=== PATIENT | female | born 1985 | race Caucasian/White ===

== ENCOUNTER 2020-10-10 22:10 | Emergency (ER) | payer OTHER ==
[2020-10-10 23:43] LABS: HEMOGLOBIN 11.8 gm/dl (12.3-15.3); RED BLOOD COUNT 3.91 M/UL (4.00-5.10); WHITE BLOOD COUNT 8.4 K/UL (4.5-11.0)
[2020-10-10 23:55] LABS: BUN/CREATININE RATIO 16 (0-10)
[2020-10-11] MEDS ORDERED: AMOXICILLIN250 MG PO (00:49)
== END 2020-10-11 01:27 | disposition home or self-care (01) ==
LOC: ER1 22:10
PROVIDERS: Family Medicine
DX: O26.51 Maternal hypotension syndrome, first trimester (principal); Z3A.01 Less than 8 weeks gestation of pregnancy; Z88.2 Allergy status to sulfonamides; Z91.040 Latex allergy status
CPT/HCPCS: 80053; 81001; 82550; 82553; 83874; 84439; 84443; 84484; 85025; 93005; 99285

== ENCOUNTER 2020-11-09 11:30 | Emergency (ER) | payer OTHER ==
[~2020-11-09 11:30] MED LIST: AMOXICILLIN250 MG PO
[2020-11-09 12:15] LABS: HEMOGLOBIN 12.7 gm/dl (12.3-15.3); RED BLOOD COUNT 4.09 M/UL (4.00-5.10); WHITE BLOOD COUNT 10.6 K/UL (4.5-11.0)
[2020-11-09 12:37] LABS: BUN/CREATININE RATIO 12 (0-10)
[2020-11-09] MEDS ORDERED: HYDROCODON-ACE1 EAC4 PO (15:08)
[2020-11-09] MEDS ORDERED: CEPHALEXIN500 MG PO (15:12)
[2020-11-09] MEDS ORDERED: FLOMAX 0.4 MG0.4 MG PO (15:12)
[2020-11-09] MEDS ORDERED: ZOFRAN4 MG PO (15:12)
== END 2020-11-09 15:53 | disposition home or self-care (01) ==
LOC: ER1 11:30
PROVIDERS: Physician Assistant
DX: O26.831 Pregnancy related renal disease, first trimester (principal); N13.2 Hydronephrosis with renal and ureteral calculous obstruction; Z3A.09 9 weeks gestation of pregnancy; Z88.2 Allergy status to sulfonamides; Z88.5 Allergy status to narcotic agent; Z88.8 Allergy status to other drugs, medicaments and biological substances
CPT/HCPCS: 76775; 80053; 81001; 84702; 85025; 87086; 96365; 96375; 99284; J0696; J2550

== ENCOUNTER 2021-01-23 18:53 | Outpatient (CLI) | payer OTHER ==
[~2021-01-23 18:53] MED LIST changes: +CEPHALEXIN500 MG PO; +FLOMAX 0.4 MG0.4 MG PO; +HYDROCODON-ACE1 EAC4 PO; +ZOFRAN4 MG PO
[2021-01-23 20:49] LABS: BUN/CREATININE RATIO 9 (0-10)
== END 2021-01-23 22:41 | disposition home or self-care (01) ==
LOC: GENOP 18:53
PROVIDERS: Obstetrics & Gynecology
DX: O21.9 Vomiting of pregnancy, unspecified (principal); O62.9 Abnormality of forces of labor, unspecified; O26.892 Other specified pregnancy related conditions, second trimester; R42 Dizziness and giddiness; E16.2 Hypoglycemia, unspecified; R03.1 Nonspecific low blood-pressure reading; Z3A.20 20 weeks gestation of pregnancy; Z91.040 Latex allergy status; Z88.1 Allergy status to other antibiotic agents; Z88.6 Allergy status to analgesic agent
CPT/HCPCS: 36415; 59025; 80053; 81001; 96360; 96361; 96374; 96375; 96376; J0696; J2550

== ENCOUNTER 2021-02-26 23:19 | Outpatient (CLI) | payer OTHER | END 2021-02-27 06:55 | disposition home or self-care (01) | LOC: GENOP 23:19 | DX: O99.891 Other specified diseases and conditions complicating pregnancy (principal); R10.9 Unspecified abdominal pain; M54.9 Dorsalgia, unspecified; O99.352 Diseases of the nervous system complicating pregnancy, second trimester; G43.909 Migraine, unspecified, not intractable, without status migrainosus; Z88.2 Allergy status to sulfonamides; Z88.5 Allergy status to narcotic agent; Z91.040 Latex allergy status; Z3A.26 26 weeks gestation of pregnancy | CPT/HCPCS: 81001; 96360; 96361; 96367; J0696 ==

== ENCOUNTER 2021-04-10 21:30 | Outpatient (CLI) | payer OTHER | END 2021-04-10 22:58 | disposition home or self-care (01) | LOC: GENOP 21:30 | DX: O47.03 False labor before 37 completed weeks of gestation, third trimester (principal); Z3A.31 31 weeks gestation of pregnancy; O99.891 Other specified diseases and conditions complicating pregnancy; R10.9 Unspecified abdominal pain; M54.9 Dorsalgia, unspecified; O99.353 Diseases of the nervous system complicating pregnancy, third trimester; G43.909 Migraine, unspecified, not intractable, without status migrainosus | CPT/HCPCS: 59025; 81001 ==

== ENCOUNTER 2021-05-03 20:45 | Outpatient (CLI) | payer OTHER | END 2021-05-04 00:03 | disposition home or self-care (01) | LOC: GENOP 20:45 | DX: O47.03 False labor before 37 completed weeks of gestation, third trimester (principal); Z3A.35 35 weeks gestation of pregnancy; O36.8130 Decreased fetal movements, third trimester, not applicable or unspecified; O21.0 Mild hyperemesis gravidarum; O99.353 Diseases of the nervous system complicating pregnancy, third trimester; G43.909 Migraine, unspecified, not intractable, without status migrainosus | CPT/HCPCS: 59025; 81001; 82731; 96360; 96374; J2405 ==

== ENCOUNTER 2021-05-07 05:11 | Outpatient (CLI) | payer OTHER | END 2021-05-07 06:16 | disposition home or self-care (01) | LOC: GENOP 05:11 | DX: O36.8190 Decreased fetal movements, unspecified trimester, not applicable or unspecified (principal); Z3A.35 35 weeks gestation of pregnancy | CPT/HCPCS: 59025 ==

== ENCOUNTER 2021-05-11 17:34 | Outpatient (CLI) | payer OTHER | END 2021-05-11 19:46 | disposition home or self-care (01) | LOC: GENOP 17:34 | DX: O47.03 False labor before 37 completed weeks of gestation, third trimester (principal); Z88.2 Allergy status to sulfonamides; Z88.5 Allergy status to narcotic agent; Z91.040 Latex allergy status; Z3A.35 35 weeks gestation of pregnancy | CPT/HCPCS: 81001; 83518 ==

== ENCOUNTER 2021-05-19 10:07 | Inpatient (IN) | payer OTHER ==
[2021-05-20 02:39] LABS: RED BLOOD COUNT 3.42 M/UL (4.00-5.10); WHITE BLOOD COUNT 10.4 K/UL (4.5-11.0)
[2021-05-20] MEDS ORDERED: PHENERGAN 12.12.5 M1 PO (07:00)
[2021-05-20] MEDS ORDERED: PRILOSEC10 M1 PO (07:00)
[2021-05-20] MEDS ORDERED: IBUPROFEN600 MG PO (16:43)
[2021-05-20] MEDS ORDERED: DOCUSATE SODIU100 MG PO (16:43)
[2021-05-21 03:40] LABS: HEMOGLOBIN 10.4 gm/dl (12.3-15.3)
== END 2021-05-22 16:36 | disposition home or self-care (01) | DRG 807 ==
LOC: GENOP 10:07 → OB 05-20 02:35
PROVIDERS: Obstetrics & Gynecology; ADMIT Obstetrics & Gynecology
PROC: 10E0XZZ Delivery of Products of Conception, External Approach (ICD-10-PCS; principal; 2021-05-20)
PROC: 10907ZC Drainage of Amniotic Fluid, Therapeutic from Products of Conception, Via Natural or Artificial Opening (ICD-10-PCS; 2021-05-20)
PROC: 10H07YZ Insertion of Other Device into Products of Conception, Via Natural or Artificial Opening (ICD-10-PCS; 2021-05-20)
PROC: 4A1H7CZ Monitoring of Products of Conception, Cardiac Rate, Via Natural or Artificial Opening (ICD-10-PCS; 2021-05-20)
PROC: 10H073Z Insertion of Monitoring Electrode into Products of Conception, Via Natural or Artificial Opening (ICD-10-PCS; 2021-05-20)
PROC: 0HQ9XZZ Repair Perineum Skin, External Approach (ICD-10-PCS; 2021-05-20)
PROC: 3E033VJ Introduction of Other Hormone into Peripheral Vein, Percutaneous Approach (ICD-10-PCS; 2021-05-20)
DX: O26.853 Spotting complicating pregnancy, third trimester (principal); Z37.0 Single live birth; O99.52 Diseases of the respiratory system complicating childbirth; Z20.822 Contact with and (suspected) exposure to COVID-19; O70.0 First degree perineal laceration during delivery; W01.0XXA Fall on same level from slipping, tripping and stumbling without subsequent striking against object, initial encounter; Z3A.36 36 weeks gestation of pregnancy; J30.2 Other seasonal allergic rhinitis; Z90.49 Acquired absence of other specified parts of digestive tract; Z98.890 Other specified postprocedural states
CPT/HCPCS: 36415; 51702; 81001; 82800; 85014; 85018; 85025; 90471; 90707; 90715; J2405; J2590; J2795; J7120; U0002